=== PATIENT | male | born 1980 | race Caucasian/White ===

== ENCOUNTER 2016-10-13 13:45 | Emergency (ER) | payer OTHER ==
[2016-10-13 16:34] LABS: BASOPHIL 0.1 % (0-2); EOSINOPHIL 0.7 % (0-5); HGB 16.2 g/dl (13.2-18.0); LYMPHOCYTE 19.9 % (15-48); MCH 31.2 pg (25.0-31.0); MCHC 35.2 g/dL (32.0-36.0); MCV 88.5 fL (78.0-100.0); MONOCYTE 11.3 % (0-12); MPV 8.5 fL (6.0-9.5); PLT 231 K/uL (150-400); RDW 13.9 % (11.5-14.0); WBC 12.1 K/uL (4.0-10.5)
[2016-10-13 16:46] LABS: CREATININE 0.7 mg/dL (0.7-1.2); POTASSIUM 4.1 mmol/L (3.5-5.1)
== END 2016-10-13 19:08 | disposition home or self-care (01) ==
LOC: FER 13:45
PROVIDERS: Nurse Practitioner
DX: T63.301A Toxic effect of unspecified spider venom, accidental (unintentional), initial encounter (principal); L02.416 Cutaneous abscess of left lower limb; H66.92 Otitis media, unspecified, left ear; F17.210 Nicotine dependence, cigarettes, uncomplicated
CPT/HCPCS: 36415; 80048; 85025; 86403; 87070; 87077; 87186; 87205; J2270; J2405